=== PATIENT | female | born 2000 | race Caucasian/White ===

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

== ENCOUNTER 2018-01-27 00:30 | Inpatient (IN) | payer MEDICAID ==
[2018-01-27] MEDS ORDERED: MINERAL OIL PO PRN (02:09)
[2018-01-27] MEDS ORDERED: STADOL IV PRN (02:09)
[2018-01-27] MEDS ORDERED: BRETHINE SUB-Q PRN (02:09)
[2018-01-27] MEDS ORDERED: POLYCILLIN/NS 2 GM/100 ML 2 GM/100 ML BAG IV ONE (02:09)
[2018-01-27] MEDS ORDERED: ePHEDrine SULFATE IV PRN (02:09)
[2018-01-27] MEDS ORDERED: BRETHINE IVP PRN (02:09)
[2018-01-27] MEDS ORDERED: NARCAN 0.4 MG/1 ML IV PRN (02:09)
[2018-01-27] MEDS ORDERED: XYLOCAINE 2% INFILTRATI ONE (02:09)
[2018-01-27] MEDS ORDERED: ZOFRAN IV PRN ×2 (02:09→10:49)
[2018-01-27] MEDS: LACTATED RINGERS 1,000 ML IV SCH ×2 (02:32→04:23)
[2018-01-27 02:38] LABS: Basophils # (Auto) 0.1 K/mm3 (0.0-0.1); Basophils % (Auto) 0.7 % (0.0-1.8); Eosinophils % (Auto) 0.2 % (0.0-4.3); Hematocrit 36.7 % (30.3-42.9); Hemoglobin 12.4 gm/dl (10.1-14.3); Lymphocytes # (Auto) 2.3 K/mm3 (1.2-5.4); Lymphocytes % (Auto) 18.1 % (13.4-35.0); Mean Corpuscular HGB Conc 34 % (30-34); Mean Corpuscular Hemoglobin 28 pg (28-32); Mean Corpuscular Volume 82 fl (79-97); Monocytes # (Auto) 0.7 K/mm3 (0.0-0.8); Monocytes % (Auto) 5.8 % (0.0-7.3); Platelet Count 295 K/mm3 (140-440); Red Blood Count 4.48 M/mm3 (3.65-5.03); Red Cell Distribution Width 13.4 % (13.2-15.2)
[2018-01-27] MEDS: SUBLIMAZE IV PRN ×2 (02:46→07:06)
[2018-01-27 02:47] LABS: Amphetamine Screen,Urine PRESUMPTIVE NEGATIVE; Benzodiazepines Screen,Urine PRESUMPTIVE NEGATIVE; Cannabinoid Screen,Urine PRESUMPTIVE NEGATIVE; Cocaine Screen,Urine PRESUMPTIVE NEGATIVE; Methadone Screen,Urine PRESUMPTIVE NEGATIVE; Opiate Screen,Urine PRESUMPTIVE NEGATIVE
[2018-01-27] MEDS ORDERED: PITOCin/NS 30 UNIT/500ML 30 UNITS/500 ML BAG IV SCH ×2 (03:00)
[2018-01-27] MEDS ORDERED: PITOCin/NS 20 UNIT/1000ML DRIP 20 UNITS/1,000 ML BAG IV SCH ×2 (03:00→10:49)
[2018-01-27 03:25] LABS: Hepatitis C Virus Antibody Non-Reactive (NonReactive)
[2018-01-27 03:50] LABS: Rubella IgG Antibody Immune (Immune)
--- NOTE | 2018-01-27 03:55 | Anesthesia Consultation ---
Anesthesia Consult and Med Hx Date of service: 01/27/18 - Airway Anesthetic Teeth Evaluation: Good ROM Head & Neck: Adequate Mental/Hyoid Distance: Adequate Mallampati Class: Class II Intubation Access Assessment: Good - Cardiac Exam Cardiac Exam: RRR - Pre-Operative Health Status ASA Pre-Surgery Classification: ASA2, Emergency Proposed Anesthetic Plan: Epidural, Spinal - Pulmonary Hx Asthma: No COPD: No Hx Pneumonia: No - Cardiovascular System Hx Hypertension: No - Central Nervous System Hx Seizures: No Hx Psychiatric Problems: No - Endocrine Hx Renal Disease: No Hx End Stage Renal Disease: No Hx Hypothyroidism: No Hx Hyperthyroidism: No - Hematic Hx Anemia: No Hx Sickle Cell Disease: No - Other Systems Hx Alcohol Use: No
[2018-01-27] MEDS ORDERED: fentaNYL-BUPIV 2 MCG/ML-0.125% 200 MCG/100 ML BAG EPIDURAL SCH (04:00)
[2018-01-27] MEDS ORDERED: XYLOCAINE MPF 2% ONE (05:08)
[2018-01-27] MEDS ORDERED: AMPICILLIN/NS 1 GM/50 ML 1 GM/50 ML BAG IV SCH (06:13)
--- NOTE | 2018-01-27 07:40 | History and Physical Report ---
History of Present Illness Date of examination: 01/27/18 Date of admission: 01/27/18 02:02 Chief complaint: contractions History of present illness: Pt is a 17 year old primigravida SHO 02/14/18 at 37w3d who presents with regular contractions for two days and advanced cervical dilation of 5 cm. She denies leakage of fluid or vaginal bleeding. She has had care at [facility] [place]. Her GBS status is unknown. Past History Past Medical History: no pertinent history Past Surgical History: no surgical history Family/Genetic History: none Social history: no significant social history - Obstetrical History Expected Date of Delivery: 02/14/18 Actual Gestation: 37 Week(s) 3 Day(s) : 1 Medications and Allergies Allergies Allergy/AdvReac Type Severity Reaction Status Date / Time No Known Allergies Allergy Unverified 09/25/17 03:50 Home Medications Medication Instructions Recorded Confirmed Last Taken Type Tablet 1 tab PO DAILY 09/25/17 01/27/18 01/26/18 11:00 History Active Meds: Active Medications Butorphanol Tartrate (Stadol) 2 mg IV Q2H PRN PRN Reason: Pain , Severe (7-10) Ephedrine Sulfate (Ephedrine Sulfate) 10 mg IV Q2M PRN PRN Reason: Hypotension Fentanyl (Sublimaze) 100 mcg IV Q2H PRN PRN Reason: Labor Pain Last Admin: 01/27/18 07:06 Dose: 100 mcg Ampicillin Sodium (Ampicillin/Ns 1 Gm/50 Ml) 1 gm in 50 mls @ 100 mls/hr IV Q4HR FEDER[place]; Protocol Lactated Ringer's (Lactated Ringers) 1,000 mls @ 125 mls/hr IV DIRECT FEDERICO Last Admin: 01/27/18 04:23 Dose: 125 mls/hr Oxytocin/Sodium Chloride (Pitocin/Ns 20 Unit/1000ml Drip) 20 units in 1,000 mls @ 125 mls/hr IV DIRECT FED[place] Oxytocin/Sodium Chloride (Pitocin/Ns 30 Unit/500ml) 30 units in 500 mls @ 1 mls /hr IV TITR FEDER[place]; Protocol Oxytocin/Sodium Chloride (Pitocin/Ns 30 Unit/500ml) 30 units in 500 mls @ 4 mls /hr IV TITR FEDERICO; Protocol Last Titration: 01/27/18 05:46 Dose: 8 mls/hr, 8 mls/hr Fentanyl/Bupivacaine/Sodium Chlor (Fentanyl-Bupiv 2 Mcg/Ml-0.125%) 200 mcg in 100 mls @ 12 mls/hr EPIDURAL TITR FEDERICO; Protocol Last Admin: 01/27/18 04:52 Dose: 12 mls/hr Mineral Oil (Mineral Oil) 30 ml PO QHS PRN PRN Reason: Constipation Naloxone HCl (Narcan 0.4 Mg/1 Ml) 0.1 mg IV Q2MIN PRN PRN Reason: Res Rate </= 8 or 02 SAT < 92% Ondansetron HCl (Zofran) 4 mg IV Q8H PRN PRN Reason: Nausea And Vomiting Terbutaline Sulfate (Brethine) 0.25 mg SUB-Q ONCE PRN PRN Reason: Hyperstimulation/Hypertonicity Terbutaline Sulfate (Brethine) 0.25 mg IVP ONCE PRN PRN Reason: Hyperstimulation/Hypertonicity Review of Systems All systems: negative - Vital Signs Vital signs: Vital Signs Pulse BP 72 120/79 01/27/18 00:46 01/27/18 00:46 Temp Pulse Resp BP Pulse Ox 98.8 F 86 16 123/71 99 01/27/18 07:25 01/27/18 07:28 01/27/18 07:25 01/27/18 07:28 01/27/18 03:43 - Physical Exam Breasts: Positive: deferred Cardiovascular: Regular rate Lungs: Positive: Clear to auscultation Abdomen: Positive: soft (gravid ) Genitourinary (Female): Positive: normal external genitalia Uterus: Positive: enlarged (gravid ) Extremities: Positive: normal - Obstetrical FHR: category 2 Uterine Contraction Monitor Mode: External Cervical Dilatation: 10 Cervical Effacement Percentage: 100 station: +2 Uterine Contraction Pattern: Regular Uterine Tone Measurement Phase: Resting Uterine Contraction Intensity: Strong/Firm Results Result Diagrams: 01/27/18 02:08 Abnormal lab results 01/27/18 Range/Units 02:08 WBC 12.6 H (4.5-11.0) K/mm3 Seg Neutrophils % 75.2 H (40.0-70.0) % Seg Neutrophils # 9.5 H (1.8-7.7) K/mm3 All other labs normal. Assessment and Plan A: IUP at 37w3d Active labor GBS unknown P: Admit to labor and delivery. GBS prophylaxis Anticipate
--- NOTE | 2018-01-27 07:48 | Procedure Note ---
OB Delivery Note - Delivery Date of Delivery: 01/27/18 Surgeon: LENI HOBSON Estimated blood loss: 500cc - Vaginal Delivery presentation: vertex Delivery position: OA Intrapartum events: meconium Delivery induction: none Delivery augmentation: rupture of membranes, pitocin Delivery monitor: external FHT, external uterine Route of delivery: Delivery placenta: spontaneous Episiotomy: none Delivery laceration: 2nd degree (right periurethral, left labial, bilateral vaginal lacerations ) Delivery repair: vicryl Anesthesia: epidural Delivery comments: Pt progressed to complete/complete/+3 and pushed to deliver a viable male over intact perineum under epidural anesthesia via . Head delivered in direct OA presentation, quickly followed by shoulders and body. Cord clamped and cut and handed to NICU staff in attendance for meconium. Placenta delivered spontaneously. Vagina and perineum explored. Right periurethral, left labial, and bilateral vaginal lacerations repaired in a standard fashion with a combination of 2-0 and 3-0 Vicryl. EBL 500 mL. - Infant A at 1 minute: 8 at 5 minutes: 9 Infant Gender: Male (2572g (5lb 11 oz) @ 0655 am)
[2018-01-27] MEDS ORDERED: SODIUM CHLORIDE FLUSH SYRINGE 10 ML IV NR (10:49)
[2018-01-27] MEDS ORDERED: DULCOLAX PR PRN (10:49)
[2018-01-27] MEDS ORDERED: DERMOPLAST TP PRN (10:49)
[2018-01-27] MEDS ORDERED: PHENERGAN PR PRN (10:49)
[2018-01-27] MEDS ORDERED: TUCKS PAD TP PRN (10:49)
[2018-01-27] MEDS ORDERED: NORCO 5/325 PO PRN (10:49)
[2018-01-27] MEDS ORDERED: BENADRYL PO PRN (10:49)
[2018-01-27] MEDS ORDERED: LANSINOH TP PRN ×2 (10:49)
[2018-01-27] MEDS ORDERED: MILK OF MAGNESIA PO PRN (10:49)
[2018-01-27] MEDS ORDERED: TYLENOL PO PRN (10:49)
[2018-01-27] MEDS ORDERED: PHENERGAN PO PRN (10:49)
[2018-01-27] MEDS: MOTRIN PO SCH ×3 (12:16→21:04)
[2018-01-27 18:34] LABS: Hematocrit 24.6 % (30.3-42.9); Hemoglobin 8.1 gm/dl (10.1-14.3)
[2018-01-27] MEDS: FEOSOL PO SCH (21:04)
[2018-01-28] MEDS ORDERED: BOOSTRIX IM ONE ×2 (07:48→22:00)
[2018-01-28] MEDS ORDERED: M-M-R II VACCINE SUB-Q ONE (07:48)
--- NOTE | 2018-01-28 08:24 | Progress Note ---
Assessment and Plan PPD#1 s/p doing well routine pp orders continue present mgt d/c home tomorrow Subjective - Subjective Date of service: 01/28/18 Principal diagnosis: s/p Patient reports: appetite normal, voiding normally, pain well controlled, flatus , ambulating normally : doing well Objective - Vital Signs Latest vital signs: Vital Signs Temp Pulse Resp BP BP Pulse Ox 01/28/18 00:00 98.7 F 77 18 107/76 01/27/18 22:04 18 01/27/18 21:04 18 01/27/18 19:30 98.6 F 77 18 104/76 01/27/18 15:52 98.3 F 71 22 118/69 94 01/27/18 10:00 98.5 F 71 16 122/80 01/27/18 08:28 83 124/73 01/27/18 08:25 98.8 F 16 Intake and Output 01/27/18 01/28/18 01/28/18 23:59 07:59 15:59 Intake Total 300 Output Total 800 900 Balance -800 -600 Intake: Intake, Free Water 300 Output: Urine 800 900 Void 800 900 Other: Total, Output Amount 800 900 # Voids Void 1 1 - Exam Breasts: Present: normal Cardiovascular: Present: Regular rate, Normal S1 Lungs: Present: Clear to auscultation, Normal air movement Abdomen: Present: soft, normal bowel sounds. Absent: distention, tenderness, guarding Vulva: both: normal Uterus: Present: normal, firm, fundal height below umbilicus. Absent: bogginess , tenderness Extremities: Present: normal Deep Tendon Reflex Grade: Normal +2 - Labs Labs: Abnormal lab results 01/27/18 Range/Units 18:21 Hgb 8.1 L D (10.1-14.3) gm/dl Hct 24.6 L D (30.3-42.9) %
--- NOTE | 2018-01-28 08:39 | Discharge Summary ---
Providers - Providers Date of Admission: 01/27/18 02:02 Date of discharge: 01/29/18 Attending physician: LENI HOBSON 01/27/18 10:49 Consult to Contracts Manager [CONS] Routine Reason For Exam: assistance with , SNS Primary care physician: LENI HOBSON Hospitalization Reason for admission: active labor Delivery: Episiotomy: none Laceration: none Other procedures: none complications: none Discharge diagnosis: IUP at term delivered Plan - Discharge Medications Prescriptions: Ferrous Sulfate 325 mg PO BID #30 tablet. Ibuprofen [Motrin] 600 mg PO Q8H PRN #30 tablet PRN Reason: Pain oxyCODONE /ACETAMINOPHEN [Percocet 5/325] 1 tab PO Q6HR PRN #30 tablet PRN Reason: Pain - Provider Discharge Summary Activity: routine, no sex for 6 weeks Diet: routine Instructions: routine Additional instructions: [] Smoking cessation referral if applicable(refer to patient education folder for contact #) [] Refer to [facility]'s [facility] Booklet Call your doctor immediately for: * Fever > 100.5 * Heavy vaginal bleeding ( >1 pad per hour) * Severe persistent headache * Shortness of breath * Reddened, hot, painful area to leg or breast * Drainage or odor from incision. * Keep incision clean and dry at all times and follow doctor's instructions regarding bathing/showering - Follow up plan Follow up: LENI HOBSON MD [Primary Care Provider] - 02/26/18
[2018-01-28] MEDS: MOTRIN PO SCH ×3 (08:42→23:19)
[2018-01-28] MEDS: FEOSOL PO SCH (22:03)
[2018-01-29] MEDS: MOTRIN PO SCH (05:20)
[2018-01-29 08:32] VITALS: BP 97/52
== END 2018-01-29 10:25 | disposition home or self-care (01) | DRG 775 ==
LOC: TRG 00:30 → LD 02:02 → OB 11:14
PROVIDERS: ADMIT Obstetrics & Gynecology; ATTEND Obstetrics & Gynecology
PROC: 10E0XZZ Delivery of Products of Conception, External Approach (ICD-10-PCS; principal; 2018-01-27)
PROC: 0KQM0ZZ Repair Perineum Muscle, Open Approach (ICD-10-PCS; 2018-01-27)
PROC: 3E0R3BZ Introduction of Anesthetic Agent into Spinal Canal, Percutaneous Approach (ICD-10-PCS; 2018-01-27)
PROC: 00HU33Z Insertion of Infusion Device into Spinal Canal, Percutaneous Approach (ICD-10-PCS; 2018-01-27)
PROC: 3E0234Z Introduction of Serum, Toxoid and Vaccine into Muscle, Percutaneous Approach (ICD-10-PCS; 2018-01-28)
DX: O77.0 Labor and delivery complicated by meconium in amniotic fluid (principal); Z3A.37 37 weeks gestation of pregnancy; Z37.0 Single live birth; Z23 Encounter for immunization; O70.1 Second degree perineal laceration during delivery
CPT/HCPCS: 36415; 80307; 85014; 85018; 85025; 85660; 86592; 86706; 86762; 86803; 86850; 86900; 86901; 87806; 88307; 90471; 90715; 99211; G0463; J0290; J0595; J2590; J3010; J7120